=== PATIENT | female | born 1975 ===

== ENCOUNTER 2025-02-20 12:35 | Outpatient (CLI) | payer BC, SELFPAY ==
--- NOTE | 2025-02-20 12:40 | MM_ITS ---
WS: [id number] BILATERAL SCREENING DIGITAL TOMOSYNTHESIS MAMMOGRAM WITH CAD HISTORY: SCREENING MAMMOGRAM FOR MALIGNANT NEOPLASM OF BREAST COMPARISON: 04/05/2023, 03/29/2022 Bilateral CC and MLO views with tomosynthesis and synthetic mammography submitted. Computer aided detection analyzed. Breast composition: The breasts are heterogeneously dense, which may obscure small masses. No suspicious masses, microcalcifications or architectural distortion. Stable asymmetries in each breast since 2021. There are no new calcifications or grouping of calcifications. No distortion. MM/MM [facility] tomosynthesis [id number] IMPRESSION: BI-RADS: 2 - Benign FOLLOW UP: 1 Year Follow-up
== END 2025-02-20 12:36 | disposition home or self-care (01) ==
PROVIDERS: PCP Nurse Practitioner Family; Visit Provider Nurse Practitioner Family
DX: Z12.31 Encounter for screening mammogram for malignant neoplasm of breast (principal); R92.333 Mammographic heterogeneous density, bilateral breasts
CPT/HCPCS: 77063; 77067